=== PATIENT | female | born 1985 | race American Indian/Alaskan Native ===

== ENCOUNTER 2016-05-31 01:32 | Emergency (ER) | payer BC ==
[2016-05-31 02:02] VITALS: BP 109/71
--- NOTE | 2016-05-31 03:12 | Emergency Department Report ---
Chief Complaint: Sore Throat Stated Complaint: SORE THROAT/EARACHE Time Seen by Provider: 05/31/16 03:03 - HPI History of Present Illness: 30-year-old female presents today with nasal congestion, runny nose, sore throat , cough 10 days. Denies sick contacts. Admission without relief and states Aleve provides her some relief. Denies fever, chills, nausea, vomiting, chest pain, shortness of breath, abdominal pain. - ROS Review of Systems: Per HPI - Exam Vital Signs: Vital Signs 05/31/16 01:57 Temperature 98.3 F Pulse Rate 73 Respiratory 18 Rate Blood Pressure 109/71 Blood Pressure 109/71 [Right] O2 Sat by Pulse 100 Oximetry Physical Exam: GENERAL: The patient is well-developed and well-nourished. Patient is in NAD. HEAD: Normocephalic. Atraumatic. EYES: PERRL. EARS: External auditory canals and tympanic membranes clear; hearing grossly intact. NOSE: Normal nasal mucosa with no nasal discharge. THROAT: No erythema, swelling or exudates. NECK: Supple, nontender, without lymphadenopathy. CHEST/LUNGS: Clear to auscultation throughout. HEART/CARDIOVASCULAR: Regular rate and rhythm. No murmurs, rubs or gallops. ABDOMEN: Abdomen is soft, nontender. Bowel sounds normoactive. No guarding or rebound tenderness. EXTREMITIES: Peripheral pulses intact. Capillary refill less than 2 seconds. NEURO: Alert and oriented x 3. Normal gait. MSE screening note: Focused history and physical exam performed. Due to findings the following was ordered: ED Disposition for MSE Disposition: MEDICAL SCREENING EXAM-LEFT Condition: Stable Referrals: PRIMARY CARE, [Primary Care Provider] - 3-5 Days
== END 2016-05-31 03:51 | disposition left against medical advice (07) ==
LOC: ED 01:32
DX: J02.9 Acute pharyngitis, unspecified (principal); R05 Cough; R09.81 Nasal congestion; Z53.21 Procedure and treatment not carried out due to patient leaving prior to being seen by health care provider